=== PATIENT | male | born 1950 | race Caucasian/White ===

== ENCOUNTER 2023-08-09 06:42 | Emergency (ER) | payer MEDICARE, OTHER ==
[2023-08-09] MEDS: Cyclobenzaprine 10 MG Tab PO ONE (07:39)
[2023-08-09] MEDS: traMADol 50 MG Tab PO ONE (07:40)
[2023-08-09] MEDS: Ketorolac 30 MG/ML SDV IM ONE (07:41)
== END 2023-08-09 09:30 | disposition home or self-care (01) ==
LOC: FB.ED 06:42
DX: M54.16 Radiculopathy, lumbar region (principal); M51.36 Other intervertebral disc degeneration, lumbar region; I10 Essential (primary) hypertension; E78.00 Pure hypercholesterolemia, unspecified; F17.210 Nicotine dependence, cigarettes, uncomplicated; Z79.82 Long term (current) use of aspirin; Z79.899 Other long term (current) drug therapy
CPT/HCPCS: 72100; 72148; 96372; 99284; A9270-GY; J1885